=== PATIENT | female | born 1945 | race Hispanic/Latino ===

== ENCOUNTER 2019-12-11 11:38 | Outpatient (CLI) | payer MEDICARE ==
--- NOTE | 2019-12-11 12:21 | Mammography Report ---
DIGITAL DIAGNOSTIC MAMMOGRAM WITH CAD, 12/11/2019 INDICATION: This biopsy clip placement. POST CLIP TECHNIQUE: Digital left mammographic imaging was performed. This examination was interpreted with the benefit of Computer-aided Detection analysis. COMPARISON: None FINDINGS: Breast Density: The breast is heterogeneously dense which may obscure small masses. Biopsy clip is identified at 8:30 o'clock approximately 4 cm from the nipple. IMPRESSION: Successful clip deployment. Follow up recommendation: No recall. Post biopsy imaging. A "normal" or negative report should not discourage follow up or biopsy of a clinically significant f inding. A written summary of these findings will be mailed to the patient. The patient will be entered into a mammography reporting system which will generate a reminder letter for the patient's next appointmen t at the appropriate interval. According to the [employer], yearly mammograms are recommended starting at age 40 and continuing as long as a woman is in good health. Breast MRI is recommended for women with an giuliano roximately 20-25% or greater lifetime risk of breast cancer, including women with a strong family his tory of breast or ovarian cancer and women who have been treated for Hodgkin's disease. Signer Name: Simone Weiner MD Signed: 12/11/2019 12:16 PM Workstation Name: [id number]
== END 2019-12-11 11:39 | disposition home or self-care (01) ==
LOC: SPVWC 11:38
PROVIDERS: ATTEND Surgery
DX: N63.24 Unspecified lump in the left breast, lower inner quadrant (principal)